=== PATIENT | male | born 1955 | race Caucasian/White ===

== ENCOUNTER 2025-04-15 11:27 | Emergency (ER) | payer OTHER, SELFPAY ==
--- NOTE | 2025-04-15 11:42 | ED_ITS ---
<Statement entered by Ash Mcgee, DO - 04/16/25 07:49>
--- NOTE | 2025-04-15 11:42 | ED.PSYCH ---
HPI - Psych General Chief Complaint: Psychiatric Symptoms Stated Complaint: mental health eval/SI Time Seen by Provider: 04/15/25 11:29 History of Present Illness HPI Narrative: Dung Banuelos is a pleasant 70-year-old male with a past medical history of bipolar 1 disorder, PTSD, yce-qfxsivu-fbfkxydup diabetes who presents to the emergency department via EMS from home for mental health eval/SI. History is obtained from EMS personnel and the patient. Patient states that his called EMS because she was worried about him. Patient was recently discharged from [facility] 2 days ago. He has been dealing with chronic suicidal ideation and was at this mental health facility for suicidal ideation. Reports that he was started on oxcarbazepine and buspirone about 2 weeks ago. He states that his called EMS because he is suicidal patient also reports that his head ?feels fuzzy?. Patient feels foggy with inability to think clearly, he is withdrawn and speaking softly and slowly. Patient denies a suicidal plan but reports that he is ?running his 's life? and that he ?should not be here? in reference to the emergency department. Patient does have left-sided facial droop which he states has been there for multiple years. He denies blood thinner use, insulin use, headache, chest pain, shortness of breath, fevers, chills, flu-like symptoms, numbness tingling weakness or dizziness. 1255: Additional history obtained from the patient's at bedside. She provided that he takes medication for cholesterol, type 2 diabetes. He also takes Abilify, trazodone, venlafaxine chronically however his Abilify dose was increased from 5 mg twice daily to 10 mg twice daily. He also was started on oxcarbazepine 300 mg and buspirone 10 mg. She is concerned that he needs adjustment to these medications, he does not have an appointment with his psychiatrist for 1 week. She reports that he has had left-sided facial droop since at least September 2023 but no known history of stroke. Related Data Previous Rx's ?Medication ?Instructions ?Recorded lorazepam 0.5 mg tablet (Ativan) 0.5 mg PO DAILY PRN anxiety #10 04/15/25 tabs Allergies Allergy/AdvReac Type Severity Reaction Status Date / Time No Known Drug Allergies Allergy Verified 04/15/25 11:43 Review of Systems Review of Systems ROS Unobtainable: All systems reviewed & are unremarkable except as noted in HPI and below Patient History Social History Smoking Status: Never smoker Exam Narrative Exam Narrative: GENERAL: 70 year old patient appears stated age. Well-developed patient, in no acute distress. Calm, cooperative, withdrawn, soft-spoken. HEAD: Atraumatic. Normocephalic. EYES: PERRL. Extraocular motions intact. No scleral icterus. No injection or drainage. ENT: Posterior oropharynx clear. Normal TMs and ear canals bilaterally. NECK: Trachea midline. Cervical ROM intact. CARDIOVASCULAR: Regular rate and rhythm. RESPIRATORY: ?Nonlabored respirations. ?Speaking in clear, full sentences. ?Clear to auscultation. Breath sounds equal bilaterally. No wheezes, rales, or rhonchi. ? GASTROINTESTINAL: Abdomen soft, non-tender, nondistended. EXTREMITIES: No LE edema. NEURO: Alert and oriented to person, place, time, location. He has left facial droop at rest that is overcome with movement, states that this is chronic. Sensation intact to light touch in bilateral face, upper extremities, lower extremities. No pronator drift, no leg drift. SKIN: No rash or erythema of visible areas Initial Vital Signs Initial Vital Signs: Vital Signs Temperature 97.5 F L 04/15/25 11:43 Pulse Rate 89 04/15/25 11:43 Respiratory Rate 16 04/15/25 11:43 Blood Pressure 148/79 H 04/15/25 11:43 Pulse Oximetry 98 04/15/25 11:43 Oxygen Delivery Method Room Air 04/15/25 11:43 Course Orders Ordered: ED Orders 04/15/25 11:42 Consult to [facility] [place] [employer] Routine EKG-12 Lead Stat 04/15/25 11:43 XR chest 1V Stat 04/15/25 11:54 Complete Blood Count AUTO DIFF Stat Comprehensive Metabolic Panel Stat Ethanol (ETOH) Stat TSH w/ Reflex to FT4 Stat Troponin & CK Cardiac Panel Stat 04/15/25 12:55 CT angio head and neck Stat CT head/brain wo con Stat 04/15/25 15:08 Urine Culture Stat Urine Drug Screen, Rapid Stat Urine Microscopic Stat Discontinued Medications Diphenhydramine HCl (Diphenhydramine 50 Mg/Ml Vial) 25 mg IV NOW ONE Stop: 04/15/25 13:19 Last Admin: 04/15/25 13:29 Dose: 25 mg Documented By: EB Famotidine (Famotidine 20 Mg/2 Ml Vial) 20 mg IV NOW ALICIA Last Admin: 04/15/25 13:30 Dose: 20 mg Documented By: EB Lorazepam (Lorazepam 0.5 Mg Tablet) 0.5 mg PO NOW ONE Stop: 04/15/25 15:27 Last Admin: 04/15/25 15:33 Dose: 0.5 mg Documented By: EB Methylprednisolone (Methylprednisolone Succ 125 Mg/2 Ml Vial) 125 mg IV NOW ONE Stop: 04/15/25 13:19 Last Admin: 04/15/25 13:29 Dose: 125 mg Documented By: EB Vital Signs Vital signs: Vital Signs - 8 hr 04/15/25 11:43 04/15/25 11:46 04/15/25 17:21 Temperature 97.5 F L Pulse Rate 89 89 93 H Respiratory Rate 16 18 15 Blood Pressure 148/79 H 132/72 Blood Pressure [Left Arm] 148/77 H Pulse Oximetry 98 98 96 Oxygen Delivery Method Room Air Room Air Room Air Oxygen Flow Rate 0 MDM - Psych Medical Records Medical records narrative: No records available for review. Lab Data 04/15/25 11:54 04/15/25 11:54 Labs: Lab Results 04/15/25 04/15/25 04/15/25 Range/Units 11:39 11:54 15:08 WBC 6.1 (4.5-11.0) X10^3/uL RBC 4.48 L (4.5-5.9) X10^6/uL Hgb 13.2 L (13.5-17.5) g/dL Hct 38.5 L (41-53) % MCV 85.9 (80-100) fL MCH 29.5 (26-34) PG MCHC 34.4 (30-36) % RDW 14.5 (11.6-14.8) % Plt Count 196 (150-400) X10^3/uL Neut % (Auto) 69.8 (50-75) % Lymph % (Auto) 18.9 L (25-40) % Douglas % (Auto) 9.2 (3-14) % Eos % (Auto) 1.3 L (2-4) % Baso % (Auto) 0.8 (0-2) % Neut # (Auto) 4300 (8300-8273) /uL Lymph # (Auto) 1200 (8920-4121) /uL Douglas # (Auto) 600 (0-900) /uL Eos # (Auto) 100 (0-450) /uL Baso # (Auto) 0 (0-100) /uL Sodium 136 L (137-145) mmol/L Potassium 4.2 (3.4-5.1) mmol/L Chloride 99 (98-107) mmol/L Carbon Dioxide 26 (22-32) mmol/L BUN 18 (9-20) mg/dL Creatinine 0.69 (0.66-1.25) mg/dL Estimated GFR > 60 (>60) mL/min BUN/Creatinine Ratio 26.1 H (6-22) Glucose 148 H (70-99) mg/dL POC Whole Bld Glucose 143 H (70-99) mg/dL Calcium 9.6 (8.4-10.2) mg/dL Total Bilirubin 0.3 (0.2-1.3) mg/dL AST 33 (17-59) IU/L ALT 41 (<50) IU/L Alkaline Phosphatase 58 (38-126) U/L Total Creatine Kinase 47 L (55-170) U/L Troponin I < 0.012 (0.01-0.034) ng/mL Total Protein 8.4 H (6.3-8.2) g/dL Albumin 5.1 H (3.5-5.0) g/dL Globulin 3.3 (1.7-4.1) g/dL Albumin/Globulin Ratio 1.5 (1.0-2.8) TSH 1.73 (0.47-4.68) uIU/mL Urine RBC None seen (0-5/HPF) Urine WBC None seen (0-5/HPF) Ur Squamous Epith Cells None seen (0-5/HPF) Urine Bacteria None seen (None) Vol Urine Centrifuged 10ml (spun) U Opiates 300ng/mL cut Negative (Negative) Ur Oxycodone Screen Negative (Negative) Urine Methadone Screen Negative (Negative) Ur Barbiturates Screen Negative (Negative) U Tricyclic Antidepress Negative (Negative) Ur Phencyclidine Scrn Negative (Negative) Ur Amphetamines Screen Negative (Negative) U Methamphetamines Scrn Negative (Negative) Ur MDMA Scrn (Ecstasy) Negative (Negative) U Benzodiazepines Scrn Negative (Negative) Urine Cocaine Screen Negative (Negative) U Marijuana (THC) Screen Negative (Negative) Urine pH Normal (Normal) Urine Specific [place] Normal (Normal) Ethyl Alcohol < 10 (<10) mg/dL Ur Creatinine Normal (Normal) Urine Dip Bedside Urine Glucose Negative Bedside Urine Bilirubin - Negative Bedside Urine Ketone - Negative Urine Specific [place] 1.010 Bedside Urine Occult Blood - Negative Bedside Urine pH 6.0 Bedside Urine Protein - Negative Bedside Urine Urobilinogen - Negative Bedside Urine Nitrite - Negative Bedside Urine Leukocytes - Negative Esterase Imaging Data CT scan - head: Radiologist's Impression: PROCEDURE: CT HEAD/BRAIN WO CON INDICATIONS: worsening psych sx, chronic L facial droop TECHNIQUE: Noncontrast 4.5 mm thick angled axial sections acquired from the foramen magnum to the vertex, with coronal and sagittal reformats. For radiation dose reduction, the following was used: automated exposure control, adjustment of mA and/or kV according to patient size. COMPARISON: [facility], CT, CT ANGIO HEAD AND NECK, 04/15/2025, 13:16. FINDINGS: Image quality: Diagnostic. CSF spaces: Basal cisterns are patent. No extra-axial fluid collections. Ventricles are normal in size and shape. Brain: No midline shift. No intracranial mass effect or hemorrhage. Li-white matter interface is normal. Skull and face: Calvarium and visualized facial bones are intact, without suspicious lesions. Sinuses: Near complete opacification is present within the right maxillary sinus with scattered areas of moderate right ethmoid and sphenoid mucosal thickening as well as left maxillary sinus. IMPRESSION: 1. No acute intracranial process. 2. Mild atrophy and chronic microvascular ischemic changes. 3. Prominent sinus disease. Dictated by: Pema Baptiste M.D. on 04/15/2025 at 14:48 Approved by: Pema Baptiste M.D. on 04/15/2025 at 14:49 CTA Head/Neck: Radiologist's Impression: PROCEDURE: CT ANGIO HEAD AND NECK INDICATIONS: worsening psych sx, chronic L facial droop TECHNIQUE: After the administration of intravenous contrast, 1 mm thick sections acquired from the aortic arch through the [place] of [place]. 3-dimensional zniwudt-twbfvtrlw-isacvjaphy (MIP) and/or volume rendering reformats were acquired of the central intracranial vasculature and neck separately. For radiation dose reduction, the following was used: automated exposure control, adjustment of mA and/or kV according to patient size. COMPARISON: [facility], CT, CT HEAD/BRAIN WO CON, 04/15/2025, 13:16. FINDINGS: Image quality: Diagnostic. Cerebral CT Angiogram: Internal carotid arteries: No acute findings. Intracranial ICA are patent with no significant stenosis. No occlusion. No aneurysm. Anterior cerebral arteries: Unremarkable. No significant stenosis. No occlusion. No aneurysm. Middle cerebral arteries: Unremarkable. No significant stenosis. No occlusion. No aneurysm. Posterior cerebral arteries: Unremarkable. No significant stenosis. No occlusion. No aneurysm. Basilar artery: Unremarkable. No significant stenosis. No occlusion. No aneurysm. Vertebral arteries: Unremarkable as visualized. Dural venous sinuses: Unremarkable given phase of enhancement. Other: Arterial phase appearance of the brain parenchyma is unremarkable. Neck CT Angiogram: Internal carotid arteries: Unremarkable. No significant stenosis. No dissection or occlusion. Common carotid arteries: Unremarkable. No significant stenosis. No dissection or occlusion. External carotid arteries: Unremarkable. No occlusion. Vertebral arteries: Unremarkable. No significant stenosis. No dissection or occlusion. Aortic Arch and Mediastinum: Partially visualized aortic arch unremarkable without evidence of aneurysm. Origins of the great vessels unremarkable. Other: Arterial phase soft tissues of the neck and chest are unremarkable. Prominent predominantly right-sided sinus mucosal thickening. IMPRESSION: No significant intracranial arterial abnormality is seen. No significant abnormality is seen within the arteries of the neck. Any quantitative measurements of stenosis were performed using NASCET criteria. Dictated by: Pema Baptiste M.D. on 04/15/2025 at 14:50 Approved by: Pema Baptiste M.D. on 04/15/2025 at 14:52 Chest x-ray: Radiologist's Impression: PROCEDURE: XR CHEST 1V INDICATIONS: gen weakness TECHNIQUE: One view of the chest was acquired. COMPARISON: None. FINDINGS: Surgical changes and devices: None. Lungs and pleura: Lungs are clear. No pleural effusions or pneumothorax. Mediastinum: Mediastinal contours appear normal. Heart size is normal. Bones and chest wall: No suspicious bony lesions. Overlying soft tissues appear unremarkable. IMPRESSION: No acute cardiopulmonary abnormality is seen. Dictated by: Junior Burt M.D. on 04/15/2025 at 12:10 Approved by: Junior Burt M.D. on 04/15/2025 at 12:10 [facility] Narrative Medical decision making narrative: 70-year-old male with a past medical history of bipolar 1 disorder, PTSD, uek-jswkfpv-xajbfshpm diabetes who presents to the emergency department via EMS from home for mental health eval/SI. Differential diagnosis includes but is not limited to medication side effect, polypharmacy, hypoglycemia, hyperglycemia, electrolyte derangement, intracerebral mass, prior CVA, etc. This morning he took: 10 mg buspirone, 300 mg ox carbamazepine, 150 mg Effexor, 20 mg Abilify. This was the 1st time he ever took 20 mg of Abilify however this was under the recommendation of his psychiatrist, he states that his symptoms started before taking this medication this morning. On exam the patient is in no acute distress, nontoxic appearing. He is withdrawn, soft-spoken but cooperative alert and oriented. He does have left facial droop which is reported to be chronic. He has no numbness tingling weakness or extremity weakness. He is able to answer all questions appropriately but he is slow to answer. After further history from his , it appears that since being discharged from mental health facility 2 days ago, he has been more withdrawn and not acting himself and she is concerned that his medications are not the best for him. He has chronic suicidal ideations but no current plan. He feels safe at home. He does not wish to be in the emergency department, his does not wish for him to be admitted if at all possible. We will attempt to reach out his psychiatrist if possible. We will obtain lab work including imaging of head and cardiac enzymes given vague symptoms. 1318: Informed by generator technician that patient states he has had hives in the past with IV contrast, IV Benadryl, Pepcid, Solu-Medrol ordered. 1520: Printed and discussed all imaging results with the patient and his , also reviewed all lab work results. He is medically cleared. Patient is doing well currently. We further discussed history of catatonia in 2010, patient's symptoms are not consistent with catatonia at this time but is worried that he might be going in his direction. She reports that he used to have as needed Ativan at home which he did really well for they are interested in trying this here. We have not been able to get in contact with the psychiatrist however patient does not want to go inpatient and his supports this decision and they would like to carry forward with a safety plan. 1700: Patient feeling much better after 0.5 mg Ativan trial. He is interested in having a few doses of this to use if needed for breakthrough anxiety which I am agreeable to. After shared decision-making between myself, social work, his , the patient, we will be discharging home with a safety plan in place. He is seeing his primary care doctor on Saturday and his psychologist in 1 week. We will have him return to the emergency department if his suicidal ideation returns or he has any concerns and we will initiate transfer to the [facility] at that time. Patient verbalized understanding of all information is agreeable with the plan. He is ambulatory and stable for discharge home. Discharge Plan Departure Patient Disposition: Home Clinical Impression: At risk for polypharmacy Bipolar disorder Qualifiers: Active/Remission status: remission status unspecified Qualified Code(s): F31.9 - Bipolar disorder, unspecified Instructions: DI for Bipolar Disorder, DI for Suicidal Ideation-Adult Activity Restrictions/Additional Instructions: Dear Mr. Banuelos, Thank you for coming to the emergency department. Today you were evaluated for mental health concerns. We completed a large workup including imaging of your head, chest and lab work. Overall your imaging and lab work today were reassuring. As we discussed, I do believe that you need to talk with your psychiatrist about further adjustment of your medications. You have been prescribed a low dose of Ativan to use if needed for breakthrough anxiety. Please return to the emergency department at any time for any concerns both medically or mental health. Please follow up with your primary care doctor within the next 2-3 days for ER follow-up. (If you do not have a PCP you can call [phone]. ?to schedule an appointment with an [facility] Primary Care Provider) IF YOU DEVELOP ANY NEW OR WORSENING SYMPTOMS, RETURN TO THE ER! Please read the attached instructions, they highlight more specific treatments and interventions for you at home. Thank you for letting me participate in your care, Charo Wren PA-C Prescriptions: New lorazepam [Ativan] 0.5 mg tablet 0.5 mg PO DAILY PRN (Reason: anxiety) Qty: 10 0RF Referrals: Alperin,Kevin, MD [Primary Care Provider, [facility]] Stand Alone Forms: Patient Portal/API
[2025-04-15 11:43] VITALS: BP 148/79; PULSE 89; RESP 16; TEMP 36.4; O2SAT 98; BMI 25.0
--- NOTE | 2025-04-15 11:43 | DI.RAD.S_ITS ---
PROCEDURE: XR CHEST 1V
[2025-04-15 11:46] VITALS: BP 148/77; PULSE 89; RESP 18; O2SAT 98
[2025-04-15 12:04] LABS: Add Manual Diff / Slide Review NO; Hematocrit 38.5 % (41-53); Hemoglobin 13.2 g/dL (13.5-17.5); Lymphocytes Absolute Auto 1200 /uL (1100-4500); Mean Corpuscular HGB Conc 34.4 % (30-36); Mean Corpuscular Hemoglobin 29.5 PG (26-34); Mean Corpuscular Volume 85.9 fL (80-100); Platelet Count 196 X10^3/uL (150-400)
[2025-04-15 12:15] LABS: Alanine Aminotransferase 41 IU/L (<50); Albumin 5.1 g/dL (3.5-5.0); Albumin Globulin Ratio 1.5 (1.0-2.8); Alkaline Phosphatase 58 U/L (38-126); Blood Urea Nitrogen 18 mg/dL (9-20); Calcium 9.6 mg/dL (8.4-10.2); Carbon Dioxide 26 mmol/L (22-32); Chloride 99 mmol/L (98-107); Creatine Kinase 47 U/L (55-170); Estimated Glomerular Filt Rate > 60 mL/min (>60); Ethanol (ETOH) < 10 mg/dL (<10); Globulin 3.3 g/dL (1.7-4.1); Glucose 148 mg/dL (70-99); HEMOLYSIS < 15 (0-50); Potassium 4.2 mmol/L (3.4-5.1); Sodium 136 mmol/L (137-145); Total Protein 8.4 g/dL (6.3-8.2)
[2025-04-15 12:26] LABS: Troponin I < 0.012 ng/mL (0.01-0.034)
--- NOTE | 2025-04-15 12:55 | DI.CT.S_ITS ---
PROCEDURE: CT HEAD/BRAIN WO CON
--- NOTE | 2025-04-15 12:55 | DI.CT.S_ITS ---
PROCEDURE: CT ANGIO HEAD AND NECK
[2025-04-15 13:05] LABS: TSH w/ Reflex to FT4 1.73 uIU/mL (0.47-4.68)
--- NOTE | 2025-04-15 13:13 | EKG_ITS ---
[facility]
[2025-04-15] MEDS: methylPREDNISolone succ 125 MG/2 ML VIAL IV (13:29)
[2025-04-15] MEDS: diphenhydrAMINE 50 MG/ML VIAL 25 MG IV (13:29)
[2025-04-15] MEDS: FAMOTIDINE 20 MG/2 ML VIAL IV (13:30)
--- NOTE | 2025-04-15 14:04 | PC.NURSE ---
pt back from CT. Denies having any itching. No rash noted. Pt denies needing anything at this time
--- NOTE | 2025-04-15 15:14 | CM.SWNOTE ---
ED BUILDING ENERGY CONSULTANT Assessment Note: BUILDING ENERGY CONSULTANT - Single Wire Saw Operator Assessment BUILDING ENERGY CONSULTANT - Single Wire Saw Operator Assessment Start: 04/15/25 14:41 Freq: Status: Active Protocol: Document 04/15/25 14:41 MW (Rec: 04/15/25 15:14 MW [id number]) BUILDING ENERGY CONSULTANT/Single Wire Saw Operator Assessment Time Spent with Patient Start date 04/15/25 Visit Start Time 11:43 End date 04/15/25 Visit End Time 12:00 Total time Care 17 minutes Management spent on patient visit-in minutes Mental Health Screening Include Onset, Duration, Intensity Presenting Problem Patient presented to the ED via EMS for SI with no plan and Altered Mental Status. Per EMS report from pt , pt is non-communicative. It is reported pt is on two new medications (buspirone and Oxcarbazepine) since inpatient stay. Precipitating Event( It is reported that pt was discharged from [facility] s) on 04/13/25 after a week inpatient stay. He was referred there because he was actively suicidal with delusions. Patient was able to express, I think I am ruining my 's life during triage assessment. Pt arrived at bedside and was a good historian for patient. She presents as supportive of pt and denies any interpersonal strife between the two of them. Patient states pt returned to from the inpatient stay increasingly non communicative and not at baseline. Patient explains he is feeling fuzzy and can't think straight. Patient Strengths Patient is supported by and has ongoing collaboration with the [facility] for [facility] care. Current Behavioral [facility]. [facility] at [facility], ph# [phone] (RN), fax# [phone] Health Provider(s) -[id number]. Include Facility, Provider, Ph. # Psych. Hx Mental Patient has a history of Bipolar 1 and PTSD. Health and Chemical Dependency Family Hx of None reported. Behavioral Abuse Psychiatric Most recent stay at [facility] from 04/06-04/13/2025. Hospitalizations ( Three previous admissions at [facility] Medical date(s)/location) Center in [place], [place]. Psychosocial Patient is a 70yo male, resident of [place] with information & , Rob[place]. Support Systems School/Work Pt is retired, previous service. Legal Concerns Legal Matters - None reported. Outstanding Issues Mental Status Orientation (Person/ AOx3 Place/Time) Affect (Congruent [place], congruent with mood with Mood?) Thought Content - None reported. Patient states, I am ruining my 's Specify/Describe life. explains this is part of his delusions. Obsessions, Patient reports pt had a manic episode in the , summer but was managed outpatient by Psychiatrist. Hallucinations Thought Processes ( Logial, coherent Logical-Coherent- Goal Directed- Detailed-Tangential- Circumstantial- Logical-Disorganized -Thought Blocking) Speech (Normal-Slow- Soft, latency in response Ujrpluw-Bshvh-Xvyj- Loud-Pressured) Motor (Normal- Slow Edrvcgzbi-Dnmb-Nobvv ) Insight (Good-Fair- Fair/limited Poor/Limited) Judgement (Good-Fair Fair/limited -Poor/Limited) Impulse Control ( Adequate Adequate-Impaired) Memory (Immediate- Intact Recent-Remote, Impaired-Intact) Concentration ( Intact Intact-Impaired) Attention (Intact- Intact Impaired) Behavior ( Appropriate Appropriate- Inappropriate) Risk Assessment Suicidal Ideation ( No Plan) Homicidal Ideation ( No Plan) Intervention Intervention Reviewed chart and discussed with ED Provider pt's medical status and discharge needs. ED BUILDING ENERGY CONSULTANT meets with patient. Patient endorses not being able to think straight and fuzzy thoughts since starting new medication and coming home from inpatient treatment. ED BUILDING ENERGY CONSULTANT and patient discuss goals of care. Patient explains they are agreeable to close outpatient follow up with Psychiatrist, they feel safe with discharging home but understand return precautions. In the event they were to return to ED, they are requesting only referral to [facility]. BUILDING ENERGY CONSULTANT calls Dr. High's metallic yarn slitting machine operator and discussed pt. BUILDING ENERGY CONSULTANT sent Medication List provided from [facility] and ED Provider Summary for Psychiatrist review; requesting an appointment for pt follow up as soon as available; still pending. At this time, it is the opinion of this BUILDING ENERGY CONSULTANT that patient would benefit from close outpatient follow up with his Psychiatrist and safety planning with pt as well. BUILDING ENERGY CONSULTANT informs ED provider, Charo Wren PA-C, who indicates agreement. BUILDING ENERGY CONSULTANT informs CAR Mejía. Plan RA Plan Once patient is medically clear, pt to discharge home with to transport. Pt to closely follow up with [facility] for medication review. MASSIEL Ramírez
[2025-04-15 15:23] LABS: UR Morphine/Opiate cutoff 300 Negative (Negative); Ur Specific Gravity Normal (Normal); Urine MDMA Negative (Negative); Urine Methamphetamines Negative (Negative); Urine Tetrahydrocannabinol Negative (Negative); Urine Tricyclic Antidepressant Negative (Negative)
--- NOTE | 2025-04-15 17:12 | CM.SWNOTE ---
ED BINDERY ASSISTANT Note: Per ED Provider, pt medically cleared to discharge home with with close follow up with Primary Care and Psychiatrist. BINDERY ASSISTANT identified with pt and that they feel comfortable with discharging home after Ativan dose in the ED. BINDERY ASSISTANT sent all clinicals to pt sample prep technician via fax for continuity of care. She confirmed appointments for patient: Primary Care with Dr. Cameron: Saturday, April 15, 2025 at 11:00am. Psych with Dr. High: April at 9:30am. Pt verbalized understanding of discharge plans and return precautions. QIAN RamírezSW
[2025-04-15 17:21] VITALS: BP 132/72; PULSE 93; RESP 15; O2SAT 96
== END 2025-04-15 17:22 | disposition home or self-care (01) ==
PROVIDERS: Emergency Provider Physician Assistant; PCP Family Medicine
DX: F31.9 Bipolar disorder, unspecified (principal); R53.1 Weakness; Z79.891 Long term (current) use of opiate analgesic
CPT/HCPCS: 36415; 70450; 70496; 70498; 71045; 80053; 80305; 80320; 81003; 81015; 82550; 82962; 84443; 84484; 85025; 87086; 93005; 99284; J1200; J2919; Q9967